=== PATIENT | female | born 2000 | race Caucasian/White ===

== ENCOUNTER 2020-02-17 15:07 | Emergency (ER) | payer MEDICAID ==
[2020-02-17 15:17] VITALS: BP 142/79
--- NOTE | 2020-02-17 15:37 | ED Physician Documentation ---
History of Present Illness - Stated complaint Stated Complaint: LT EAR PX - Chief complaint Chief Complaint: Heent - History obtained from History obtained from: Patient - History of Present Illness Timing: How many days ago (2) Pain level max: 8 Pain level now: 8 - Additonal information Additional information: 19-year-old female presents the emergency department left ear pain for the past 2 days. Nothing makes it better or worse. Denies any rhinorrhea, congestion, coughing, sore throat. Review of Systems Ten Systems: 10 systems reviewed and negative Constitutional: denies: Fever, Chills GI: denies: Vomiting, Diarrhea Skin: denies: Rash Musculoskeletal: denies: Neck pain, Back pain Neurologic: denies: Headache PD PAST MEDICAL HISTORY - Past Medical History Past Medical History: No - Past Surgical History Past Surgical History: No - Present Medications Home Medications: Ambulatory Orders Medication Instructions Recorded Confirmed Neomycin/Polymyx/Hc Otic Drops 4 drops OT TID 10 Days #1 bottle 02/17/20 [Cortisporin Ear Susp] - Allergies Allergies/Adverse Reactions: Allergies Allergy/AdvReac Type Severity Reaction Status Date / Time No Known Drug Allergies Allergy Verified 02/17/20 15:13 - Social History Does the pt smoke?: No Smoking Status: Never smoker PD ED PE NORMAL - Vitals Vital signs reviewed: Yes - General General: Alert and oriented X 3, Well developed/nourished - HEENT HEENT: PERRL, Moist mucous membranes, Pharynx benign, Other (Right ear is normal. Left TM is normal. Left ear canal is erythematous and swollen. Slight white exudate.) - Neck Neck: Supple, no meningeal sign, No adenopathy - Derm Derm: Warm and dry - Neuro Neuro: Alert and oriented X 3 - Psych Psych: Normal mood, Normal affect Results - Vitals Vitals: Vital Signs - 24 hr 02/17/20 15:13 Temperature 36.6 C Heart Rate 100 Respiratory 16 Rate Blood Pressure 142/79 H O2 Saturation 98 Oxygen O2 Source Room air PD MEDICAL DECISION MAKING - ED course Complexity details: considered differential, d/w patient ED course: Patient with an acute left otitis externa. We will place on Cortisporin otic. She is well-appearing, nontoxic. Afebrile. Patient counseled regarding signs and symptoms for which I believe and urgent re-evaluation would be necessary. Quentin camacho with good understanding of and agreement to plan and is comfortable going home at this time This document was made in part using voice recognition software. While efforts are made to proofread this document, sound alike and grammatical errors may occur. Departure - Departure Disposition: 01 Home, Self Care Clinical Impression: Otitis externa Qualifiers: Otitis externa type: unspecified type Chronicity: acute Laterality: left Qualified Code(s): H60.502 - Unspecified acute noninfective otitis externa, left ear Condition: Good Instructions: ED Otitis Externa Follow-Up: your,doctor as needed [Other] Prescriptions: Neomycin/Polymyx/Hc Otic Drops [Cortisporin Ear Susp] 4 drops OT TID 10 Days #1 bottle Comments: Use the eardrops as prescribed. Return if you worsen. Follow-up with your doctor for further care.
== END 2020-02-17 15:52 | disposition home or self-care (01) ==
LOC: ED 15:07
DX: H60.502 Unspecified acute noninfective otitis externa, left ear (principal)
CPT/HCPCS: 99282; 99284

== ENCOUNTER 2020-08-19 17:10 | Emergency (ER) | payer MEDICAID ==
[2020-08-19 17:20] VITALS: BP 120/75
== END 2020-08-19 18:29 | disposition left against medical advice (07) ==
LOC: ED 17:10
DX: Z53.21 Procedure and treatment not carried out due to patient leaving prior to being seen by health care provider (principal)

== ENCOUNTER 2020-10-23 00:16 | Emergency (ER) | payer MEDICAID ==
--- NOTE | 2020-10-23 00:29 | ED Physician Documentation ---
PD HPI ABD PAIN - Stated complaint Stated Complaint: ADB PX - Chief complaint Chief Complaint: Abd Pain - History obtained from History obtained from: Patient - History of Present Illness Timing - onset: How many hours ago (2-3) Timing - duration: Hours (2-3) Timing - details: Abrupt onset, Still present Quality: Cramping, Aching, Pain Location: RUQ, Epigastric Radiation: Upper back Improved by: No: Laying still, Position Worsened by: Breathing, Palpation. No: Moving Associated symptoms: Nausea, Loss of appetite. No: Fever, Vomiting, Diarrhea, Near syncope / syncope Similar symptoms before: No diagnosis (has had similar episodes about 1-2 times weekly, for few minutes sometimes, and few episodes lasting up to 4 hours. Tonight is more severe than prior episodes. No pain interval times. Onset 3 months ago after delivering child.) Review of Systems Constitutional: denies: Fever, Chills Nose: denies: Rhinorrhea / runny nose, Congestion Throat: denies: Sore throat Respiratory: denies: Cough GI: reports: Abdominal Pain, Nausea, Diarrhea (has had loose stools occur around times of these abd pain episodes. No ongoing diarrhea.). denies: Vomiting, Constipation : denies: Dysuria, Vaginal bleeding Skin: denies: Rash, Lesions Neurologic: denies: Generalized weakness, Near syncope PD PAST MEDICAL HISTORY - Past Medical History Cardiovascular: None Respiratory: None GI: None : None - Past Surgical History Past Surgical History: No - Present Medications Home Medications: Ambulatory Orders Medication Instructions Recorded Confirmed Dicyclomine [Bentyl] 10 mg PO BID PRN #20 capsule 10/23/20 Famotidine [Pepcid] 20 mg PO DAILY #20 tablet 10/23/20 Ondansetron Odt [Zofran] 4 mg TL Q6H PRN #10 tablet 10/23/20 Oxycodone HCl/Acetaminophen 1 each PO Q6H PRN #15 tablet 10/23/20 [Percocet 5-325 mg Tablet] - Allergies Allergies/Adverse Reactions: Allergies Allergy/AdvReac Type Severity Reaction Status Date / Time No Known Drug Allergies Allergy Verified 10/23/20 00:27 - Social History Does the pt smoke?: No Smoking Status: Never smoker PD ED PE NORMAL - Vitals Vital signs reviewed: Yes - General General: Alert and oriented X 3, Well developed/nourished, Other (appears in pain and holding RUQ area with hands. ) - Neck Neck: Supple, no meningeal sign, No adenopathy - Cardiac Cardiac: RRR (regular but tahycardic), No murmur - Respiratory Respiratory: Clear bilaterally - Abdomen Abdomen: Normal bowel sounds, Non distended, No organomegaly, Other (tender RUQ with guarding but no percussion nor rebound tenderness. ) - Female Female : Deferred - Rectal Rectal: Deferred - Back Back: No CVA TTP - Derm Derm: Normal color, Warm and dry - Neuro Neuro: Alert and oriented X 3, No motor deficit, Normal speech Results - Vitals Vitals: Vital Signs - 24 hr 10/23/20 10/23/20 10/23/20 00:24 00:26 01:30 Temperature 36.4 C L 36.4 C L 36.4 C L Heart Rate 114 H 114 H 76 Respiratory 19 19 16 Rate Blood Pressure 124/85 H 124/85 H 114/61 O2 Saturation 100 100 99 10/23/20 02:36 Temperature 36.4 C L Heart Rate 72 Respiratory 16 Rate Blood Pressure 110/62 O2 Saturation 99 Oxygen O2 Source Room air - Labs Labs: Laboratory Tests 10/23/20 10/23/20 10/23/20 00:35 00:54 00:54 WBC 11.7 H RBC 4.68 Hgb 12.4 Hct 39.5 MCV 84.4 MCH 26.5 L MCHC 31.4 L RDW 13.6 Plt Count 285 MPV 10.2 Neut # (Auto) 8.9 H Lymph # (Auto) 1.9 [place] # (Auto) 0.6 Eos # (Auto) 0.1 Baso # (Auto) 0.1 Absolute Nucleated RBC 0.00 Nucleated RBC % 0.0 Sodium 136 Potassium 3.9 Chloride 101 Carbon Dioxide 26 Anion Gap 9.0 BUN 20 Creatinine 1.0 Estimated GFR (MDRD) 71 L Glucose 121 H Calcium 8.7 Total Bilirubin 0.6 AST 34 ALT 30 Alkaline Phosphatase 87 Total Protein 7.8 Albumin 4.4 Globulin 3.4 Albumin/Globulin Ratio 1.3 Lipase 34 Urine Color YELLOW Urine Clarity CLEAR Urine pH 6.0 Ur Specific [place] 1.025 Urine Protein NEGATIVE Urine Glucose (UA) NEGATIVE Urine Ketones TRACE Urine Occult Blood NEGATIVE Urine Nitrite NEGATIVE Urine Bilirubin NEGATIVE Urine Urobilinogen 0.2 (NORMAL) Ur Leukocyte Esterase NEGATIVE Ur Microscopic Review NOT INDICATED Urine Culture Comments NOT INDICATED Urine HCG, Qual NEGATIVE - Rads (name of study) RUQ abd U/S Radiology: Prelim report reviewed (gallstone without signs of acute cholecystitis. ), See rad report PD MEDICAL DECISION MAKING - ED course Complexity details: reviewed results, re-evaluated patient (improved with pain meds here. ), considered differential (sounds likely biliary colic.), d/w patient Departure - Departure Disposition: Home, Self Care Clinical Impression: Acute upper abdominal pain, Biliary colic Condition: Stable Record reviewed to determine appropriate education?: Yes Instructions: ED Gallstone W Biliary Colic Follow-Up: Ever Matute MD [Provider Admit Priv/Credential] - Joel Santiago MD [Provider Admit Priv/Credential] - [facility] [Provider Group] [facility] [Provider Group] Prescriptions: Dicyclomine [Bentyl] 10 mg PO BID PRN #20 capsule PRN Reason: Abdominal Pain Famotidine [Pepcid] 20 mg PO DAILY #20 tablet Oxycodone HCl/Acetaminophen [Percocet 5-325 mg Tablet] 1 each PO Q6H PRN #15 tablet PRN Reason: pain Ondansetron Odt [Zofran] 4 mg TL Q6H PRN #10 tablet PRN Reason: Nausea / Vomiting Comments: Your pain episodes sound likely to be gallbladder spasms. Your ultrasound does show gallstones which is commonly associated as an irritant for the gallbladder. Try to eat a low-fat diet and small meals. Use Tylenol if needed for mild pains. For the worst pain episodes, you can use ondansetron for nausea and dicyclomine antispasmodic for pain. Add oxycodone if needed for worse pain. Follow-up with general surgery to discuss potential gallbladder surgery. I gave the number of 2 of the surgeons here in [place] and see which are able to see you. I also gave to clinics up in [place] to call and see if they have openings and accept your insurance regarding obtaining primary care as well. I would also add famotidine acid reducing medicine daily in case there is some over acid production as part of the pain. Discharge Date/Time: 10/23/20 02:36
[2020-10-23] MEDS ORDERED: KETOROLAC 15 MG/ML VIAL IVP STA (00:38)
[2020-10-23] MEDS ORDERED: ONDANSETRON 4 MG/2 ML VIAL IVP STA (00:38)
[2020-10-23 00:44] LABS: BILIRUBIN,URINE NEGATIVE (NEGATIVE); GLUCOSE, URINE (UA) NEGATIVE (NEGATIVE); KETONES,URINE (UA) TRACE mg/dL (NEGATIVE); LEUKOCYTE ESTERASE, URINE NEGATIVE (NEGATIVE); NITRITE,URINE NEGATIVE (NEGATIVE); OCCULT BLOOD,URINE NEGATIVE (NEGATIVE); PROTEIN,URINE NEGATIVE (NEGATIVE); UROBILINOGEN,URINE 0.2 (NORMAL) E.U./dL (NORMAL)
[2020-10-23 00:46] LABS: CLARITY,URINE CLEAR (CLEAR); HCG UR QUAL NEGATIVE
[2020-10-23] MEDS: HYDROmorphone 1 MG/ML CARPUJECT IVP STA ×2 (00:48→00:49)
[2020-10-23 00:56] LABS: BASOPHILS # (AUTO) 0.1 10^3/uL (0.0-0.1); BASOPHILS % (AUTO) 0.5 %; EOSINOPHILS # (AUTO) 0.1 10^3/uL (0.0-0.7); EOSINOPHILS % (AUTO) 0.9 %; HGB - HEMOGLOBIN 12.4 g/dL (12.0-16.0); LYMPHOCYTES # (AUTO) 1.9 10^3/uL (1.5-3.5); LYMPHOCYTES % (AUTO) 16.4 %; MEAN CORPUSCULAR HEMOGLOBIN 26.5 pg (27.0-31.0); MEAN CORPUSCULAR HGB CONC 31.4 g/dL (32.0-36.0); MEAN CORPUSCULAR VOLUME 84.4 fL (81.0-99.0); MEAN PLATELET VOLUME 10.2 fL (7.9-10.8); MONOCYTES # (AUTO) 0.6 10^3/uL (0.0-1.0); MONOCYTES % (AUTO) 5.3 %; NEUTROPHILS # (AUTO) 8.9 10^3/uL (1.5-6.6); NEUTROPHILS % (AUTO) 76.2 %; PLT - PLATELET COUNT 285 10^3/uL (130-450); RED BLOOD COUNT 4.68 10^6/uL (4.20-5.40); RED CELL DISTRIBUTION WIDTH 13.6 % (12.0-15.0); WHITE BLOOD COUNT 11.7 x10^3/uL (4.8-10.8)
[2020-10-23 01:09] LABS: ALBUMIN 4.4 g/dL (3.2-5.5); ALBUMIN/GLOBULIN RATIO 1.3 (1.0-2.2); BILIRUBIN,TOTAL 0.6 mg/dL (0.2-1.0); CALCIUM 8.7 mg/dL (8.5-10.3); TOTAL PROTEIN 7.8 g/dL (6.7-8.2)
[2020-10-23 02:38] VITALS: BP 110/62
--- NOTE | 2020-10-23 10:47 | Ultrasound Report ---
PROCEDURE: Abdomen Limited INDICATIONS: RUQ/epigastric pain for hours; episodic for months TECHNIQUE: Real-time scanning was performed of the abdominal and retroperitoneal organs, with image documentatio n. COMPARISON: None. FINDINGS: Liver: Liver is enlarged with increased echogenicity. Hepatic cyst is noted measuring 9 x 8 x8 mm. Gallbladder: Mobile foci are present in the gallbladder. Wall thickness is within normal limits 2.1 mm. Biliary ducts: Intrahepatic bile ducts are non-dilated. Extrahepatic bile duct caliber measures 4.7 mm. Normal is 6-7 mm or less in diameter, or 10 mm or less post-cholecystectomy. Pancreas: Visualized portions of the pancreas are sonographically normal. Kidneys: Right kidney measures 11.2 cm long. No hydronephrosis or nephrolithiasis. No solid masses . IVC: Intrahepatic inferior vena cava is patent. IMPRESSION: Cholelithasis without imaging evidence of cholecystitis. Hepatic steatosis. The above findings are concordant with preliminary report. Reviewed by: Joann Graf MD on 10/23/2020 10:45 AM [facility] Approved by: Joann Graf MD on 10/23/2020 10:45 AM [facility] Station ID: [id number]
== END 2020-10-23 02:36 | disposition home or self-care (01) ==
LOC: ED 00:16
DX: K80.50 Calculus of bile duct without cholangitis or cholecystitis without obstruction (principal)
CPT/HCPCS: 36415; 76705; 80053; 81003; 81025; 83690; 85025; 96374; 96375; 99284; J1170; 81001; 87086

== ENCOUNTER 2021-01-21 22:32 | Emergency (ER) | payer MEDICAID ==
--- OUTSIDE RECORDS SUMMARY | 2021-01-21 22:35 | EXTERNAL MEDICAL SUMMARY RPT | Continuity of Care Document ---
:2000 Demographics Phone Unavailable Preferred Language Unknown Marital Status Unknown Jain Affiliation Unknown Race Unknown Ethnic Group Unknown Author Organization [facility] [address] [place] [address] Phone Social History date description facility [phone]
--- OUTSIDE RECORDS SUMMARY | 2021-01-21 22:37 | EXTERNAL MEDICAL SUMMARY RPT | Continuity of Care Document ---
:2000 Demographics Phone Unavailable Preferred Language Unknown Marital Status Unknown Roman Catholic Affiliation Unknown Race Unknown Ethnic Group Unknown Author Organization [facility] Address [address] [place] [address] Phone Social History date description facility [phone]
[2021-01-21 23:14] LABS: BASOPHILS # (AUTO) 0.1 10^3/uL (0.0-0.1); BASOPHILS % (AUTO) 0.4 %; EOSINOPHILS # (AUTO) 0.1 10^3/uL (0.0-0.7); EOSINOPHILS % (AUTO) 0.5 %; HCT - HEMATOCRIT 39.1 % (37.0-47.0); HGB - HEMOGLOBIN 12.4 g/dL (12.0-16.0); LYMPHOCYTES # (AUTO) 1.7 10^3/uL (1.5-3.5); LYMPHOCYTES % (AUTO) 11.3 %; MEAN CORPUSCULAR HEMOGLOBIN 25.9 pg (27.0-31.0); MEAN CORPUSCULAR HGB CONC 31.7 g/dL (32.0-36.0); MEAN CORPUSCULAR VOLUME 81.8 fL (81.0-99.0); MEAN PLATELET VOLUME 10.2 fL (7.9-10.8); MONOCYTES # (AUTO) 0.7 10^3/uL (0.0-1.0); MONOCYTES % (AUTO) 4.5 %; NEUTROPHILS # (AUTO) 12.5 10^3/uL (1.5-6.6); PLT - PLATELET COUNT 316 10^3/uL (130-450); RED BLOOD COUNT 4.78 10^6/uL (4.20-5.40); RED CELL DISTRIBUTION WIDTH 13.2 % (12.0-15.0); WHITE BLOOD COUNT 15.1 x10^3/uL (4.8-10.8)
[2021-01-21 23:27] LABS: ALBUMIN 4.5 g/dL (3.2-5.5); ALBUMIN/GLOBULIN RATIO 1.3 (1.0-2.2); BILIRUBIN,TOTAL 0.4 mg/dL (0.2-1.0); CALCIUM 8.7 mg/dL (8.5-10.3); CREATININE 0.8 mg/dL (0.4-1.0); TOTAL PROTEIN 7.9 g/dL (6.7-8.2)
--- NOTE | 2021-01-22 00:05 | ED Physician Documentation ---
PD HPI ABD PAIN - Stated complaint Stated Complaint: AB PX - Chief complaint Chief Complaint: Abd Pain - History obtained from History obtained from: Patient - History of Present Illness Timing - onset: How many hours ago (2-3) Timing - details: Abrupt onset, Now resolved, Waxing and waning Pain level max: 6 Pain level now: 0 Quality: Pain Location: RUQ, Epigastric Improved by: Other (nothing) Worsened by: Other (no exacerbating factors) Associated symptoms: No: Fever, Nausea, Vomiting, Diarrhea, Constipation Similar symptoms before: Diagnosis (biliary colic) - Additional information Additional information: 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 evaluated for same symptoms 3 months ago in this ED and diagnosed with biliary colic. she has not followed up since being evaluated here in September although she has had recurrent episodes of this pain with increasing frequency Review of Systems Constitutional: reports: Reviewed and negative GI: reports: Abdominal Pain, Nausea. 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 : None - Past Surgical History Past Surgical History: No - Present Medications Home Medications: Ambulatory Orders Medication Instructions Recorded Confirmed Dicyclomine [Bentyl] 10 mg PO BID PRN #20 capsule 10/23/20 Famotidine [Pepcid] 20 mg PO DAILY #20 tablet 10/23/20 Oxycodone HCl/Acetaminophen 1 each PO Q6H PRN #15 tablet 10/23/20 [Percocet 5-325 mg Tablet] Norelgestromin/Ethin.estradiol 1 each TD 01/21/21 [Zafemy 150-35 Mcg/Day Patch] - Allergies Allergies/Adverse Reactions: Allergies Allergy/AdvReac Type Severity Reaction Status Date / Time No Known Drug Allergies Allergy Verified 01/21/21 22:41 - Social History Does the pt smoke?: No Smoking Status: Never smoker Does the pt drink ETOH?: No Does the pt have substance abuse?: No - Immunizations Immunizations are current?: Yes - POLST Patient has POLST: No PD ED PE NORMAL - Vitals Vital signs reviewed: Yes - General General: Alert and oriented X 3, No acute distress, Well developed/nourished - HEENT HEENT: Moist mucous membranes - Cardiac Cardiac: RRR, No murmur - Respiratory Respiratory: No respiratory distress, Clear bilaterally - Abdomen Abdomen: Normal bowel sounds, Soft, Non tender, Non distended - Back Back: No CVA TTP - Derm Derm: No rash Results - Vitals Vitals: Oxygen O2 Source Room air - Labs Labs: Laboratory Tests 01/21/21 01/21/21 01/22/21 23:09 23:09 00:36 WBC 15.1 H RBC 4.78 Hgb 12.4 Hct 39.1 MCV 81.8 MCH 25.9 L MCHC 31.7 L RDW 13.2 Plt Count 316 MPV 10.2 Neut # (Auto) 12.5 H Lymph # (Auto) 1.7 [place] # (Auto) 0.7 Eos # (Auto) 0.1 Baso # (Auto) 0.1 Absolute Nucleated RBC 0.00 Nucleated RBC % 0.0 Sodium 136 Potassium 4.0 Chloride 101 Carbon Dioxide 24 Anion Gap 11.0 BUN 16 Creatinine 0.8 Estimated GFR (MDRD) 91 Glucose 167 H Calcium 8.7 Total Bilirubin 0.4 AST 39 ALT 40 Alkaline Phosphatase 93 Total Protein 7.9 Albumin 4.5 Globulin 3.4 Albumin/Globulin Ratio 1.3 Lipase 40 Urine Color YELLOW Urine Clarity CLEAR Urine pH 6.0 Ur Specific [place] 1.025 Urine Protein NEGATIVE Urine Glucose (UA) NEGATIVE Urine Ketones NEGATIVE Urine Occult Blood LARGE H Urine Nitrite NEGATIVE Urine Bilirubin NEGATIVE Urine Urobilinogen 0.2 (NORMAL) Ur Leukocyte Esterase NEGATIVE Urine RBC TNTC H Urine WBC 0-3 Ur Squamous Epith Cells RARE Squamous Urine Bacteria Rare Urine Mucus Few Strands Ur Microscopic Review INDICATED Urine Culture Comments NOT INDICATED Urine HCG, Qual NEGATIVE PD MEDICAL DECISION MAKING - ED course Complexity details: reviewed old records, reviewed results, re-evaluated patient, considered differential, d/w patient ED course: patient presents for right upper quadrant and epigastric abdominal pain that started approximately 2 to 3 hours prior to arrival. The pain is completely resolved by the time of this evaluation. Her blood tests revealed mild leukocytosis, but otherwise unremarkable, including liver function tests. She is nontender on abdominal exam. reimaging is not indicated at this time, she will follow up with general surgery Departure - Departure Disposition: 01 Home, Self Care Clinical Impression: Biliary colic Condition: Good Instructions: ED Gallstone W Biliary Colic Follow-Up: Joel Santiago MD [Provider Admit Priv/Credential] - Discharge Date/Time: 01/22/21 00:35
[2021-01-22 00:41] VITALS: BP 111/65
[2021-01-22 00:44] LABS: BILIRUBIN,URINE NEGATIVE (NEGATIVE); GLUCOSE, URINE (UA) NEGATIVE (NEGATIVE); KETONES,URINE (UA) NEGATIVE (NEGATIVE); LEUKOCYTE ESTERASE, URINE NEGATIVE (NEGATIVE); NITRITE,URINE NEGATIVE (NEGATIVE); OCCULT BLOOD,URINE LARGE (NEGATIVE); PROTEIN,URINE NEGATIVE (NEGATIVE); UROBILINOGEN,URINE 0.2 (NORMAL) E.U./dL (NORMAL)
[2021-01-22 00:47] LABS: CLARITY,URINE CLEAR (CLEAR); HCG UR QUAL NEGATIVE
[2021-01-22 00:53] LABS: BACTERIA,URINE Rare /HPF (None Seen); MUCUS,URINE Few Strands; RBC,URINE TNTC /HPF (0-5); SQUAMOUS EPITHELIAL CELL,UR RARE Squamous (<= Few); WBC,URINE 0-3 /HPF (0-5)
== END 2021-01-22 00:35 | disposition home or self-care (01) ==
LOC: ED 22:32
DX: K80.50 Calculus of bile duct without cholangitis or cholecystitis without obstruction (principal)
CPT/HCPCS: 36415; 80053; 81001; 81003; 81025; 83690; 85025; 87086; 99283; 99284

== ENCOUNTER 2021-02-21 23:51 | Emergency (ER) | payer MEDICAID ==
--- OUTSIDE RECORDS SUMMARY | 2021-02-21 23:54 | EXTERNAL MEDICAL SUMMARY RPT | Continuity of Care Document ---
:2000 Demographics Phone Unavailable Preferred Language Unknown Marital Status Unknown Taoist Affiliation Unknown Race Unknown Ethnic Group Unknown Author Organization [facility] Address [address] [place] [address] Phone Allergies Encounters Medications Problems Results
--- OUTSIDE RECORDS SUMMARY | 2021-02-22 | EXTERNAL MEDICAL SUMMARY RPT | Continuity of Care Document ---
:2000 Demographics Phone Unavailable Preferred Language Unknown Marital Status Unknown Shinto Affiliation Unknown Race Unknown Ethnic Group Unknown Author Organization [facility] Address [address] [place] [address] Phone Allergies Encounters Medications Problems Results
--- NOTE | 2021-02-22 02:13 | ED Physician Documentation ---
PD HPI ABD PAIN - Stated complaint Stated Complaint: ABD PX - Chief complaint Chief Complaint: Abd Pain - History obtained from History obtained from: Patient - History of Present Illness Timing - onset: How many hours ago (3) Timing - details: Abrupt onset Pain level now: 8 Location: RUQ, Epigastric Radiation: Other (does not radiate) Improved by: Other (no ameliorating factors) Worsened by: Other (no exacerbating factors) Associated symptoms: Nausea. No: Fever, Vomiting Recently seen: Emergency Dept - Additional information Additional information: Patient complains of right upper quadrant abdominal pain that began approximately three hours ago while at home at rest. The pain is very similar to previous episodes that were attributed to biliary colic. She was evaluated in this emergency department for similar symptoms in September and again last month. She has followed up with a general surgeon and is scheduled to have cholecystectomy performed on February 27. She no longer has any pain medications at home, but was having adequate relief with oxycodone that had been prescribed on a previous visit. Review of Systems Constitutional: reports: Reviewed and negative Cardiac: reports: Reviewed and negative Respiratory: reports: Reviewed and negative GI: reports: Abdominal Pain, Nausea. denies: Abdominal Swelling, Vomiting, Constipation, Diarrhea : denies: Dysuria, Frequency, Now EGA PD PAST MEDICAL HISTORY - Past Medical History Cardiovascular: Murmur Respiratory: None Endocrine/Autoimmune: None GI: None DATABASE DBA: Fibroids : None HEENT: Chronic vision loss Psych: None Musculoskeletal: None Derm: None - Past Surgical History Past Surgical History: No - Present Medications Home Medications: Ambulatory Orders Medication Instructions Recorded Confirmed Norelgestromin/Ethin.estradiol 1 patch TOP 02/22/21 [Zafemy 150-35 Mcg/Day Patch] Ondansetron Odt [Zofran] 4 mg TL Q6H PRN #10 tablet 02/22/21 oxyCODONE [Roxicodone] 5 - 10 mg PO Q6H PRN #20 tablet 02/22/21 - Allergies Allergies/Adverse Reactions: Allergies Allergy/AdvReac Type Severity Reaction Status Date / Time No Known Drug Allergies Allergy Verified 01/21/21 22:41 - Social History Does the pt smoke?: No Smoking Status: Never smoker Does the pt drink ETOH?: No Does the pt have substance abuse?: No - Immunizations Immunizations are current?: Yes - POLST Patient has POLST: No PD ED PE NORMAL - Vitals Vital signs reviewed: Yes - General General: Alert and oriented X 3, Well developed/nourished, Other (obvious painful distress) - HEENT HEENT: Moist mucous membranes - Cardiac Cardiac: RRR, No murmur - Respiratory Respiratory: No respiratory distress, Clear bilaterally - Abdomen Abdomen: Normal bowel sounds, Soft, Non tender, Non distended - Back Back: No CVA TTP Results - Vitals Vitals: Vital Signs - 24 hr 02/22/21 02/22/21 00:01 05:51 Temperature 36.7 C Heart Rate 86 80 Respiratory 18 16 Rate Blood Pressure 105/63 114/62 O2 Saturation 97 98 Oxygen O2 Source Room air - Labs Labs: Laboratory Tests 02/22/21 02/22/21 04:00 04:00 WBC 13.1 H RBC 4.35 Hgb 11.3 L Hct 34.9 L MCV 80.2 L MCH 26.0 L MCHC 32.4 RDW 13.9 Plt Count 267 MPV 10.4 Neut # (Auto) 10.4 H Lymph # (Auto) 1.5 [place] # (Auto) 1.0 Eos # (Auto) 0.0 Baso # (Auto) 0.1 Absolute Nucleated RBC 0.00 Nucleated RBC % 0.0 Sodium 138 Potassium 3.9 Chloride 106 Carbon Dioxide 23 Anion Gap 9.0 BUN 13 Creatinine 0.6 Estimated GFR (MDRD) 126 Glucose 98 Calcium 8.5 Total Bilirubin 0.6 AST 161 H ALT 68 H Alkaline Phosphatase 80 Total Protein 7.3 Albumin 3.9 Globulin 3.4 Albumin/Globulin Ratio 1.1 Lipase 40 - Rads (name of study) RUq US Radiology: Prelim report reviewed, See rad report PD MEDICAL DECISION MAKING - ED course Complexity details: reviewed old records, reviewed results, re-evaluated patient, considered differential, d/w patient ED course: Patient presents with recurrent biliary colic. She had complete resolution of her pain after IV Toradol and one dose of IV Dilaudid. On reevaluation, she is awake alert and oriented times three, in no apparent distress, and reports resolution of symptoms. Her bloodwork is reassuring with trivial elevation in her liver enzymes but otherwise normal liver function test. Her ultrasound shows gall stones without evidence of cholecystitis. She is comfortable with being discharged home. Departure - Departure Disposition: 01 Home, Self Care Clinical Impression: Biliary colic Condition: Good Instructions: ED Gallstone W Biliary Colic Follow-Up: Kilo Hernandez MD [Provider Admit Priv/Credential] - Prescriptions: oxyCODONE [Roxicodone] 5 - 10 mg PO Q6H PRN #20 tablet PRN Reason: Pain Ondansetron Odt [Zofran] 4 mg TL Q6H PRN #10 tablet PRN Reason: Nausea / Vomiting Discharge Date/Time: 02/22/21 05:53
[2021-02-22] MEDS ORDERED: SODIUM CHLORIDE 0.9% 1,000 ML IV STA (02:44)
[2021-02-22] MEDS ORDERED: KETOROLAC 30 MG/ML VIAL IVP STA (02:44)
[2021-02-22] MEDS ORDERED: HYDROmorphone 1 MG/ML CARPUJECT IVP STA (02:44)
[2021-02-22 04:09] LABS: BASOPHILS # (AUTO) 0.1 10^3/uL (0.0-0.1); BASOPHILS % (AUTO) 0.4 %; EOSINOPHILS % (AUTO) 0.1 %; HCT - HEMATOCRIT 34.9 % (37.0-47.0); HGB - HEMOGLOBIN 11.3 g/dL (12.0-16.0); LYMPHOCYTES # (AUTO) 1.5 10^3/uL (1.5-3.5); LYMPHOCYTES % (AUTO) 11.7 %; MEAN CORPUSCULAR HGB CONC 32.4 g/dL (32.0-36.0); MEAN CORPUSCULAR VOLUME 80.2 fL (81.0-99.0); MEAN PLATELET VOLUME 10.4 fL (7.9-10.8); MONOCYTES % (AUTO) 7.5 %; NEUTROPHILS # (AUTO) 10.4 10^3/uL (1.5-6.6); NEUTROPHILS % (AUTO) 79.9 %; PLT - PLATELET COUNT 267 10^3/uL (130-450); RED BLOOD COUNT 4.35 10^6/uL (4.20-5.40); RED CELL DISTRIBUTION WIDTH 13.9 % (12.0-15.0); WHITE BLOOD COUNT 13.1 x10^3/uL (4.8-10.8)
[2021-02-22 04:20] LABS: ALBUMIN 3.9 g/dL (3.2-5.5); ALBUMIN/GLOBULIN RATIO 1.1 (1.0-2.2); BILIRUBIN,TOTAL 0.6 mg/dL (0.2-1.0); CALCIUM 8.5 mg/dL (8.5-10.3); CREATININE 0.6 mg/dL (0.4-1.0); POTASSIUM 3.9 mmol/L (3.5-5.0); TOTAL PROTEIN 7.3 g/dL (6.7-8.2)
[2021-02-22 05:51] VITALS: BP 114/62
--- NOTE | 2021-02-22 09:33 | Ultrasound Report ---
PROCEDURE: Abdomen Limited INDICATIONS: upper abdominal pain TECHNIQUE: Real-time focused scanning was performed of the abdomen, with image documentation. COMPARISON: 10/15/2020 FINDINGS: The liver demonstrates prominent size. The liver demonstrates moderately increased echoge nicity, which limits ultrasound sensitivity for detection of masses. Within the right lobe of the briana er, there is a hypoechoic focus seen that measures up to 1 cm, which is similar to the prior study an d may be related to a complex cyst. 1 mobile gallstone can be seen within the gallbladder. The gallbladder wall does not appear thickened . There is no specific pericholecystic fluid. The sonographic Haney's sign is negative. No biliary ductal dilatation is seen. The common bile duct measures 6 mm. The visualized pancreas is within normal limits. The visualized right kidney demonstrates a 1.4 cm cyst. Examination quality is limited by patient's pain during the examination, with difficulty tolerating s tandard probe pressure and withholding inspirations. IMPRESSION: A mobile gallstone can be seen within the gallbladder and there is a positive sonographic Haney's si gn. No additional sonographic signs of cholecystitis are seen. Please correlate with patient presenta tion, clinical examination findings, and laboratory values, as appropriate. No biliary dilatation is seen. Potential complex cyst seen of the liver. Please consider 6 month follow-up. Incidental note is made of: Fatty liver infiltration Right renal cyst Note: No significant discrepancy from the preliminary report. Reviewed by: Colton Tierney MD on 02/22/2021 8:31 AM TE Approved by: Colton Tierney MD on 02/22/2021 8:31 AM TE Station ID: [id number]
== END 2021-02-22 05:53 | disposition home or self-care (01) ==
LOC: ED 23:51
DX: K80.20 Calculus of gallbladder without cholecystitis without obstruction (principal); K76.0 Fatty (change of) liver, not elsewhere classified; N28.1 Cyst of kidney, acquired
CPT/HCPCS: 36415; 76705; 80053; 83690; 85025; 96374; 96375; 99284; J1170

== ENCOUNTER 2021-02-24 13:00 | Outpatient (CLI) | payer MEDICAID | END 2021-02-24 23:59 | disposition home or self-care (01) | LOC: COV 13:00 | PROVIDERS: ATTEND Surgery | DX: Z01.812 Encounter for preprocedural laboratory examination (principal); K80.20 Calculus of gallbladder without cholecystitis without obstruction; Z20.822 Contact with and (suspected) exposure to COVID-19 ==

== ENCOUNTER 2021-02-27 08:12 | Day surgery (SDC) | payer MEDICAID ==
[~2021-02-27 08:12] MED LIST: ceFAZolin 2 GM/50 ML 2 GM/50 ML BAG IV ONE
--- OUTSIDE RECORDS SUMMARY | 2021-02-27 08:14 | EXTERNAL MEDICAL SUMMARY RPT | Continuity of Care Document ---
:2000 Demographics Phone Unavailable Preferred Language Unknown Marital Status Unknown Anabaptist Affiliation Unknown Race Unknown Ethnic Group Unknown Author Organization [facility] Address [address] [place] [address] Phone Allergies Encounters Medications Problems Results
[2021-02-27] MEDS ORDERED: LACTATED RINGERS 1,000 ML IV ONE ×3 (08:29→14:22)
[2021-02-27 08:50] LABS: HCG UR QUAL NEGATIVE
--- NOTE | 2021-02-27 08:56 | ANESTHESIA ---
Pre-Anesthesia VS, & Labs - Diagnosis cholelithisis - Procedure laparoscopic cholecystectomy Vital Signs: Temp Pulse Resp BP Pulse Ox 36.1 C L 83 16 128/78 99 02/27/21 08:33 02/27/21 08:33 02/27/21 08:33 02/27/21 08:33 02/27/21 08:33 Height: 5 ft 8 in Weight (kg): 110.6 kg Body Mass Index: 37.0 BMI Classification: Obese - NPO >8 hours - Is Patient ?: No - Lab Results Lab results reviewed: Yes Home Medications and Allergies Norelgestromin/Ethin.estradiol [Zafemy 150-35 Mcg/Day Patch] 1 patch TOP DAILY 02/22/21 Allergies/Adverse Reactions: Allergies Allergy/AdvReac Type Severity Reaction Status Date / Time No Known Drug Allergies Allergy Verified 01/21/21 22:41 Anes History & Medical History - Anesthetic History Anesthesia Complications: reports: No previous complications Family history of Anesthesia Complications: Denies Family history of Malignant Hyperthermia: Denies - Medical History Cardiovascular: reports: Murmur Pulmonary: reports: None Gastrointestinal: reports: None Urinary: reports: None Musculoskeletal: reports: None Endocrine/Autoimmune: reports: None Skin: reports: None Smoking Status: Never smoker Exam General: Alert, Oriented x3, Cooperative, No acute distress Dental: WNL Mouth Openin Fingerbreadth Neck Mobility: Normal Mallampati classification: II Respiratory: Lungs clear, Normal breath sounds, No respiratory distress, No accessory muscle use Cardiovascular: Regular rate, Normal S1, Normal S2, No murmurs Plan Anesthesia Type: General Consent for Procedure(s) Verified and Reviewed: Yes Code Status: Attempt Resuscitation ASA classification: 2-Mild systemic disease Is this case an emergency?: No
[2021-02-27] MEDS ORDERED: ONDANSETRON 4 MG/2 ML VIAL IVP PRN (09:24)
[2021-02-27] MEDS ORDERED: ATROPINE ABBOJECT 1 MG/10 ML SYRINGE IVP PRN (09:24)
[2021-02-27] MEDS ORDERED: MORPHINE 2 MG/ML CARPUJECT IVP PRN (09:24)
[2021-02-27] MEDS ORDERED: ePHEDrine 50 MG/ML VIAL IVP PRN (09:24)
[2021-02-27] MEDS ORDERED: HYDROmorphone 0.5 MG/0.5 ML SYRINGE IVP PRN ×2 (09:24→13:19)
[2021-02-27] MEDS ORDERED: fentaNYL 100 MCG/2 ML VIAL IVP PRN (09:24)
[2021-02-27] MEDS ORDERED: NALOXONE 0.4 MG/ML VIAL IVP PRN (09:24)
[2021-02-27] MEDS ORDERED: METOCLOPRAMIDE 10 MG/2 ML VIAL IVP PRN (09:24)
[2021-02-27] MEDS ORDERED: LIDOCAINE 1% 50 ML MDV ONE (09:56)
[2021-02-27] MEDS ORDERED: BUPIVACAINE 0.5%-EPI 1:200000 PF 30 ML VIAL ONE (09:56)
[2021-02-27] MEDS ORDERED: LIDOCAINE-MPF 2% 5 ML VIAL ONE (09:59)
[2021-02-27] MEDS ORDERED: PROPOFOL 200 MG/20 ML VIAL IVP ONE ×2 (09:59→12:05)
[2021-02-27] MEDS ORDERED: MIDAZOLAM 2 MG/2 ML VIAL ONE (10:00)
[2021-02-27] MEDS ORDERED: LACTATED RINGERS 1,000 ML IV SCH (10:00)
[2021-02-27] MEDS ORDERED: fentaNYL 100 MCG/2 ML VIAL ONE ×4 (10:00→12:15)
[2021-02-27] MEDS ORDERED: ROCURONIUM 50 MG/5 ML VIAL ONE ×2 (10:01→11:43)
[2021-02-27] MEDS ORDERED: ONDANSETRON 4 MG/2 ML VIAL ONE (10:01)
[2021-02-27] MEDS ORDERED: DEXAMETHASONE 4 MG/ML VIAL ONE ×2 (10:01→12:43)
[2021-02-27] MEDS ORDERED: IOTHALAMATE MEGLUMINE 50 ML VIAL ONE (11:05)
[2021-02-27] MEDS ORDERED: IOTHALAMATE MEGLUMINE 50 ML VIAL IVP ONE (11:15)
[2021-02-27] MEDS ORDERED: LIDOCAINE 1% 50 ML MDV SUBQ ONE (11:15)
[2021-02-27] MEDS ORDERED: BUPIVACAINE 0.5%-EPI 1:200000 PF 30 ML VIAL SUBQ ONE (11:16)
[2021-02-27] MEDS ORDERED: SUGAMMADEX 200 MG/2 ML VIAL IVP ONE (12:40)
[2021-02-27] MEDS ORDERED: KETOROLAC 30 MG/ML VIAL ONE (12:40)
[2021-02-27] MEDS ORDERED: SODIUM CHLORIDE 0.9% 10 ML VIAL IVP ONE (12:43)
[2021-02-27] MEDS ORDERED: ROPIVACAINE 0.5% PF 20 ML AMPULE ONE (12:43)
--- NOTE | 2021-02-27 13:18 | ANESTHESIA POST OP EVALUATION ---
Anesthesia Post Eval - Post Anesthesia Eval Vitals: Last Vital Signs Temp 38.1 C H 02/27/21 13:10 Pulse 108 H 02/27/21 13:10 Resp 12 02/27/21 13:10 BP 138/75 H 02/27/21 13:10 Pulse Ox 100 02/27/21 13:10 CV Function Including HR & BP: Stable Pain Control: Satisfactory Nausea & Vomiting: Negative Mental Status: Baseline Respiratory Status: Airway Patent Hydration Status: Satisfactory Anesthesia Complications: None
--- NOTE | 2021-02-27 13:19 | OPERATIVE REPORT ---
Operative Report - General Procedure Date: 02/27/21 Planned Procedure: 1. Diagnostic laparoscopy 2. Laparoscopic cholecystectomy 3. Intraoperative cholangiogram, laparoscopic 4. Other indicated procedures Pre-Op Diagnosis: Biliary colic; cholelithiasis Procedure Performed: 1. Diagnostic laparoscopy 2. Laparoscopic cholecystectomy 3. Intraoperative cholangiogram, laparoscopic 4. Adhesiolysis, laparoscopic 5. Open umbilical hernia repair Post Op Diagnosis: Same; dense intrahepatic chronically inflamed gallbladder - Procedure Note Primary Surgeon: Mary Secondary Surgeon: James Anesthesia Provider: Jeremias Anesthesia Technique: General ET tube, Local, Regional block Pathology: Gallbladder Estimated Blood Loss (mL): 20 Indications: See EMR Findings: 1. Critical view of safety achieved; the peritoneum overlying the gallbladder infundibulum was then incised and the cystic duct and cystic artery were both identified and circumferentially dissected. A critical view of safety was established at this time, and included all of the following: a. The hepatocystic triangle was clear of fat and fibrous tissue. b. The lower one third of the gallbladder was from the liver to expose the cystic plate. c. Only two structures were seen entering the gallbladder, which was documented by photography. 2. Intra-Op cholangiogram with no filling defect 3. Densely adherent intrahepatic gallbladder 4. Umbilical hernia Complications: None - Other Other Information/Narrative: The patient was brought in the operating room, placed supine on the operating table. They were induced for general endotracheal anesthesia. They were offloaded and padded, both arms tucked. They were prepped and draped in the usual sterile fashion. Storey catheter was placed. Time out was called and agreed to by all in the room. We planned an infraumbilical, circumlinear incision for open Sully access. The umbilical stalk was divided and revealed an umbilical hernia. This was enlarged to offer access to the abdominal cavity which was without any complication. No inadvertent hollow viscous injury. And was insufflated to 15 mmHg without any complication. Adhesions noted and were sequentially taken once additional access was accomplished with the following secondary ports: 1. Epigastric 5mm 2. Midclavicular, Right upper quadrant 3. Anterior axillary line, Right subcostal The last port in the right lateral abdomen was placed after sharp adhesiolysis laparoscopically The abdomen was inspected and findings are as noted above. The table was placed in reverse Trendelenburg position with the right side up. Filmy adhesions between gallbladder & omentum, duodenum/transverse colon were lysed sharply. The dome of gallbladder was grasped with a grasper and retracted over the dome of the liver. The infundibulum was also grasped with an atraumatic grasper and retracted toward right lower quadrant. This maneuver exposed Calot's triangle. Please note the gall bladder appeared grossly inflamed, confirmed suspected diagnosis of acute on chronic cholecystitis. The peritoneum overlying the gallbladder infundibulum was then incised and the cystic duct and cystic artery were both identified and circumferentially dissected. A critical view of safety was established at this time, and included all of the followin. The hepatocystic triangle was clear of fat and fibrous tissue. 2. The lower one third of the gallbladder was from the liver to expose the cystic plate. 3. Only two structures were seen entering the gallbladder, which was documented by photography. The cystic artery was then doubly ligated (clip) and divided close to the gallbladder. We then began to carefully dissect and skeletonized the cystic duct. We then singly clipped the gallbladder proximally. We performed a small cystostomy at the level of the mid cystic duct and proceeded to place a ureteral catheter through this. We thereafter placed a clamp and after irrigating with saline proceeded to perform cholangiography with 50-50 mix of contrast dye. The second run which was saved into the medical record showed opacification of both the left and right intrahepatic ductal draining systems, and intact common bile duct which clearly drained unobstructed into the duodenum which was opacified as well. With this complete we triply clipped the cystic duct distal to the cystostomy and divided the cystic duct without complication. The gallbladder was then dissected from surrounding peritoneal attachments by electrocautery. Again, dense adhesions for acute on chronic cholecystitis necessitated approaching this cautiously. Hemostasis was checked and gallbladder and contained bile were removed using an endoscopic retrieval bag placed through the umbilical port. Surgicel was placed within the gallbladder fossa without any complication. Area was hemostatic at the conclusion of this case. Please note that any ductal stones at the level of the cystic duct were ``milked back into the gall bladder prior to ligating and dividing the duct. The gallbladder was passed off the table as a specimen. The gallbladder fossa was copiously irrigated with saline and hemostasis was obtained with electrocautery. There was no evidence of bleeding of the gallbladder fossa or cystic artery or leakage of the bile from the cystic duct stump. The Secondary 5 mm ports were removed under direct vision. We thereafter removed the umbilical access, Sully port and closed the umbilical hernia as follows. Several [id number] 0-Vicryl sutures placed at the umbilical closure, re- approximating the hernia defect adequately. The umbilical stalk was performed for umbilicoplasty. The wound was irrigated, and all the skin incisions were reapproximated with skin rustam were used to reapproximate. All counts for sponges, needles, and instruments were correct at the conclusion of this operative case. All incisions were injected with a total of with 0.5% Marcaine. The wounds were dressed dermabond. Patient was taken extubated to the PACU in stable.
--- NOTE | 2021-02-27 13:27 | XRAY Report ---
PROCEDURE: OR Cholangiogram INDICATIONS: Cholecystectomy. COMPARISON: None. CONTRAST: CONTRAST: CONRAY FINDINGS: Biliary ducts: The surgeon injected contrast into the biliary ducts after cannulation of the cystic duct stump. Visualized intra- and extrahepatic bile ducts are normal in caliber, without strictures. There is a filling defect present which travels between the common duct and the central portion of t he right hepatic duct, likely representing an air bubble. No other filling defects are identified. No evidence for iatrogenic ductal injury. Duodenum: Contrast flows promptly through the sphincter of Oddi into the duodenum, which appears nor mal in caliber. IMPRESSION: There is a filling defect in the biliary tree which most likely represents a air bubble. Recommend co rrelation with surgeon's report. The biliary tree is normal caliber. There is free drainage into the duodenum. Reviewed by: Luis Simon MD on 02/27/2021 1:25 PM PDT Approved by: Luis Simon MD on 02/27/2021 1:25 PM PDT Station ID: [id number]
[2021-02-27] MEDS ORDERED: HYDROmorphone 0.5 MG/0.5 ML SYRINGE ONE (13:51)
[2021-02-27] MEDS ORDERED: LORazepam 2 MG/ML VIAL IVP SCH (14:00)
[2021-02-27] MEDS: LACTATED RINGERS 1,000 ML IV SCH (14:46)
[2021-02-27] MEDS: oxyCODONE 5 MG TABLET PO PRN (17:03)
[2021-02-27] MEDS: KETOROLAC 30 MG/ML VIAL IVP SCH (19:53)
[2021-02-27] MEDS: ACETAMINOPHEN 1,000 MG/100 ML 100 ML IV SCH (19:56)
[2021-02-27] MEDS ORDERED: ACETAMINOPHEN 1,000 MG/100 ML 100 ML IV SCH (20:00)
[2021-02-27] MEDS: DOCUSATE SODIUM 100 MG CAPSULE PO SCH (21:52)
[2021-02-27] MEDS: polyethylene glycoL 3350 17 GM PACKET PO SCH (21:52)
[2021-02-28] MEDS: KETOROLAC 30 MG/ML VIAL IVP SCH ×3 (01:17→12:00)
[2021-02-28] MEDS: LACTATED RINGERS 1,000 ML IV SCH ×2 (01:19→12:06)
[2021-02-28] MEDS: ACETAMINOPHEN 1,000 MG/100 ML 100 ML IV SCH ×2 (01:22→06:12)
[2021-02-28 06:18] LABS: BASOPHILS % (AUTO) 0.2 %; HCT - HEMATOCRIT 36.8 % (37.0-47.0); HGB - HEMOGLOBIN 11.4 g/dL (12.0-16.0); LYMPHOCYTES # (AUTO) 1.3 10^3/uL (1.5-3.5); LYMPHOCYTES % (AUTO) 12.1 %; MEAN CORPUSCULAR HEMOGLOBIN 24.9 pg (27.0-31.0); MEAN CORPUSCULAR VOLUME 80.3 fL (81.0-99.0); MEAN PLATELET VOLUME 10.4 fL (7.9-10.8); MONOCYTES # (AUTO) 0.5 10^3/uL (0.0-1.0); MONOCYTES % (AUTO) 4.7 %; NEUTROPHILS # (AUTO) 9.1 10^3/uL (1.5-6.6); NEUTROPHILS % (AUTO) 82.5 %; PLT - PLATELET COUNT 293 10^3/uL (130-450); RED BLOOD COUNT 4.58 10^6/uL (4.20-5.40); RED CELL DISTRIBUTION WIDTH 14.1 % (12.0-15.0)
[2021-02-28 06:33] LABS: ALBUMIN 3.5 g/dL (3.2-5.5); BILIRUBIN,TOTAL 0.2 mg/dL (0.2-1.0); CALCIUM 8.7 mg/dL (8.5-10.3); CREATININE 0.6 mg/dL (0.4-1.0); POTASSIUM 3.7 mmol/L (3.5-5.0); TOTAL PROTEIN 6.9 g/dL (6.7-8.2)
[2021-02-28] MEDS: DOCUSATE SODIUM 100 MG CAPSULE PO SCH (09:14)
[2021-02-28] MEDS: polyethylene glycoL 3350 17 GM PACKET PO SCH (09:14)
[2021-02-28] MEDS: oxyCODONE 5 MG TABLET PO PRN ×2 (09:54→14:52)
[2021-02-28 11:58] VITALS: BP 96/52
[2021-02-28] MEDS ORDERED: ACETAMINOPHEN 500 MG TABLET PO SCH (12:00)
== END 2021-02-28 15:20 | disposition home or self-care (01) ==
LOC: SDS 08:12 → MS2 14:32 → SDS 02-28 15:20
PROVIDERS: ATTEND Surgery
PROC: BF100ZZ Fluoroscopy of Bile Ducts using High Osmolar Contrast (ICD-10-PCS; 2021-02-27)
PROC: 0FT44ZZ Resection of Gallbladder, Percutaneous Endoscopic Approach (ICD-10-PCS; principal; 2021-02-27 09:30)
DX: K80.12 Calculus of gallbladder with acute and chronic cholecystitis without obstruction (principal); K42.9 Umbilical hernia without obstruction or gangrene; E66.9 Obesity, unspecified; Z68.37 Body mass index [BMI] 37.0-37.9, adult
CPT/HCPCS: 36415; 47563; 74300; 80053; 81025; 85025; A9270; C1758; J0131; J0690; J1170; J7120; Q9961